=== PATIENT | female | born 1950 | race Caucasian/White ===

== ENCOUNTER 2023-04-03 19:29 | Emergency (ER) | payer MEDICARE ==
[2023-04-03] MEDS ORDERED: Lidocaine 1% 5 ML VIAL INJECT ONE ×2 (19:36→19:43)
[2023-04-03] MEDS ORDERED: Diphtheria,Pertussis(Acell),Tetanus Vaccine 0.5 ML Syringe IM ONE (19:39)
[2023-04-03] MEDS ORDERED: Lidocaine 1% 5 ML VIAL ONE (19:44)
[2023-04-03] MEDS ORDERED: Bacitracin Oint 1 GM U/D Packet TOP ONE (20:08)
== END 2023-04-03 21:15 | disposition home or self-care (01) ==
LOC: JP.ED 19:29
DX: S91.312A Laceration without foreign body, left foot, initial encounter (principal); I10 Essential (primary) hypertension; Z88.2 Allergy status to sulfonamides; Z91.018 Allergy to other foods; Z88.8 Allergy status to other drugs, medicaments and biological substances; Z79.899 Other long term (current) drug therapy; Z23 Encounter for immunization; W18.30XA Fall on same level, unspecified, initial encounter
CPT/HCPCS: 12005; 90471; 90715; 99283-25